=== PATIENT | female | born 1965 | race Caucasian/White ===

== ENCOUNTER 2018-06-16 21:18 | Emergency (ER) | payer BC, OTHER ==
[~2018-06-16] VITALS: Ht 172.7 cm; Wt 115.2 kg
[~2018-06-16 21:18] MED LIST: CLONIDINE HCL0.1 MG PO; LACTULOSE20 GM/30 M PO; LOSARTAN POTASS25 MG PO; SENNA LAX8.6 MG PO; SERTRALINE HCL50 MG PO; Z.0.ATENOLOL100 MG PO; Z.0.PRILOSEC20 MG; Z.1.LISINOPRIL-HCT1
[2018-06-16 22:28] LABS: BASOPHILS # (AUTO) 0.1 (0.0-0.1); BASOPHILS % 0.5 % (0.0-1.0); EOSINOPHILS # (AUTO) 0.3 (0.0-0.4); EOSINOPHILS % 2.5 % (0.0-6.0); HEMATOCRIT 37.2 % (34.2-44.1); HEMOGLOBIN 12.1 g/dL (12.0-16.0); LYMPHOCYTES # (AUTO) 1.9 (1.0-3.2); LYMPHOCYTES % 18.4 % (18.0-39.1); MEAN CORPUSCULAR HEMOGLOBIN 34.6 pg (28-32); MEAN CORPUSCULAR HGB CONC 32.5 g/dL (31-35); MEAN CORPUSCULAR VOLUME 106.3 fL (81-99); MONOCYTES # (AUTO) 0.5 (0.2-0.8); MONOCYTES % 4.5 % (4.4-11.3); NEUTROPHILS # (AUTO) 7.7 (2.1-6.9); NEUTROPHILS % 73.7 % (38.7-80.0); PLATELET COUNT 295 x10e3/uL (140-360); RED CELL DISTRIBUTION WIDTH 13.4 % (11.7-14.4)
[2018-06-16 22:43] LABS: ALANINE AMINOTRANSFERASE 8 IU/L (0-55); ALBUMIN 3.7 g/dL (3.5-5.0); ALBUMIN/GLOBULIN RATIO 0.9 (0.8-2.0); ALKALINE PHOSPHATASE 130 IU/L (40-150); AMYLASE 38 U/L (25-125); ANION GAP 14.9 mmol/L (8-16); BLOOD UREA NITROGEN 23 mg/dL (7-26); BUN/CREATININE RATIO 15 (6-25); CALCIUM 9.9 mg/dL (8.4-10.2); CARBON DIOXIDE 26 mmol/L (22-29); CHLORIDE 100 mmol/L (98-107); CREATINE KINASE 25 IU/L (29-168); CREATININE, SERUM 1.49 mg/dL (0.57-1.11); EST GLOMERULAR FILTRATION RATE 36 ML/MIN (60-); GLUCOSE 115 mg/dL (74-118); LIPASE 38 U/L (8-78); MAGNESIUM 2.4 MG/DL (1.3-2.1); POTASSIUM 4.9 mmol/L (3.5-5.1); SODIUM 136 mmol/L (136-145)
[2018-06-16 22:58] LABS: BILIRUBIN,URINE NEGATIVE (NEGATIVE); CLARITY,URINE CLEAR (CLEAR); COLOR,URINE YELLOW (YELLOW); KETONES,URINE NEGATIVE (NEGATIVE); LEUKOCYTE ESTERASE ,URINE NEGATIVE (NEGATIVE); NITRITE,URINE NEGATIVE (NEGATIVE); PROTEIN,URINE DIPSTICK NEGATIVE (NEGATIVE); URINE UROBILINOGEN 0.2 mg/dL (0.2 - 1)
--- NOTE | 2018-06-16 23:13 | Diagnostic Imaging Report ---
EXAM: CHEST SINGLE (PORTABLE), AP 1 view INDICATION: Shortness of breath, chest pain COMPARISON: None FINDINGS: LINES/TUBES: None LUNGS: No consolidations or edema. PLEURA: No effusions or pneumothorax. HEART AND MEDIASTINUM: Normal size and contour. BONES AND SOFT TISSUES: No acute findings. IMPRESSION: No acute thoracic abnormality. Signed by: Dr. Li Bridges M.D. on 06/16/2018 11:09 PM
[2018-06-16 23:19] LABS: BACTERIA,URINE RARE /HPF; EPITHELIAL CELLS,URINE FEW /LPF; RBC,URINE 0-5 /HPF (0-5); WBC,URINE (MAN) 0-5 /HPF (0-5)
[2018-06-17] MEDS ORDERED: IPRATROPIUM BROMIDE 0.02% 2.5 ML NEB NEB STA (00:20)
[2018-06-17] MEDS ORDERED: ALBUTEROL SULF 0.083% NEB SOLN 3 ML NEB NEB STA (00:20)
== END 2018-06-17 01:25 | disposition home or self-care (01) ==
LOC: ER 21:18
DX: R05 Cough (principal); J20.9 Acute bronchitis, unspecified; I10 Essential (primary) hypertension
CPT/HCPCS: 36415; 71045; 80053; 81001; 82150; 82550; 82553; 83605; 83690; 83735; 84484; 85025; 93005; 94640; 99284

== ENCOUNTER 2020-03-05 16:55 | Inpatient (IN) | payer SELFPAY ==
[~2020-03-05] VITALS: Ht 172.7 cm; Wt 115.2 kg
[2020-03-05] MEDS ORDERED: ASPIRIN 325 MG TAB PO ONE (17:00)
--- NOTE | 2020-03-05 17:04 | Emergency Department Note ---
History of Present Illnes History of Present Illness Chief Complaint: General Medicine Complaints History of Present Illness This is a 54 year old female with acute onset diplopia, slurring of speech and visual changes onset of 1649. Patient reports having vertigo like symptoms followed by partial visual loss. Patient had similiar symptoms which self resolved last week. . Historian: Patient, Family Member Arrival Mode: Car Onset (how long ago): minute(s) Radiation: Reports non-radiation Severity: severe Onset quality: sudden Timing of current episode: constant Progression: worsening Chronicity: new Context: Denies recent illness, Denies recent surgery, Denies recent immobilization, Denies recent travel, Denies trauma/injury, Denies new medications, Denies hx of DVT/PE, Denies non-compliance w/ medications, Denies other Relieving factors: none Exacerbating factors: none Associated symptoms: Reports weakness Treatments prior to arrival: none Past Medical/Family History Physician Review I have reviewed the patient's past medical and family history. Any updates have been documented here. Past Medical History Recent Fever: No Clinical Suspicion of Infectio: No New/Unexplained Change in Ment: Yes Past Medical History: Hypertension Other Medical History: HIGH CHOLESTEROL, SHINGLES, ANGINA, IBS Other Surgery: ENDOMETRIAL ABLATION, FIBROID TUMORS Social History Smoking Cessation: Never Smoker Alcohol Use: None Any Illegal Drug Use: No Other Last Tetanus: 2009 Review of Systems Review of Systems Constitutional: Reports no symptoms EENTM: Reports no symptoms Cardiovascular: Reports no symptoms Respiratory: Reports no symptoms Gastrointestinal: Reports no symptoms Genitourinary: Reports no symptoms Musculoskeletal: Reports no symptoms Integumentary: Reports no symptoms Neurological: Reports weakness, Reports other (vertigo, slurring of speech, visual changes (diplopia and partial visual loss)) Psychological: Reports no symptoms Endocrine: Reports no symptoms Hematological/Lymphatic: Reports no symptoms Physical Exam Related Data Allergies: Coded Allergies: No Known Allergies (Unverified , 11/18/15) Triage Vital Signs Vital Signs Date Time Temp Pulse Resp B/P (MAP) Pulse Ox O2 Delivery O2 Flow Rate FiO2 03/05/20 17:02 98.4 77 14 139/76 100 Room Air Vital signs reviewed: Yes Physical Exam CONSTITUTIONAL Constitutional: Present obese HENT HENT: Present normocephalic, Present atraumatic, Present oropharynx clear/moist, Present nose normal HENT L/R: Present left ext ear normal, Present right ext ear normal EYES Eyes: Reports PERRL, Reports conjunctivae normal NECK Neck: Present ROM normal PULMONARY Pulmonary: Present effort normal, Present breath sounds normal CARDIOVASCULAR Cardiovascular: Present regular rhythm, Present heart sounds normal, Present capillary refill normal, Present normal rate GASTROINTESTINAL Abdominal: Present soft, Present nontender, Present bowel sounds normal GENITOURINARY Genitourinary: Present exam deferred SKIN Skin: Present warm, Present dry MUSCULOSKELETAL Musculoskeletal: Present ROM normal NEUROLOGICAL Neurological: Present alert, Present oriented x 3, Present weakness, Present other PSYCHOLOGICAL Psychological: Present mood/affect normal, Present judgement normal Results Laboratory Lab results reviewed: Yes Laboratory comments Laboratory Tests Test 03/05/20 19:13 03/05/20 17:15 White Blood Count 7.17 x10e3/uL (4.8-10.8) Red Blood Count 3.68 x10e6/uL (3.6-5.1) Hemoglobin 11.6 g/dL (12.0-16.0) Hematocrit 37.0 % (34.2-44.1) Mean Corpuscular Volume 100.5 fL (81-99) Mean Corpuscular Hemoglobin 31.5 pg (28-32) Mean Corpuscular Hemoglobin Concent 31.4 g/dL (31-35) Red Cell Distribution Width 13.0 % (11.7-14.4) Platelet Count 278 x10e3/uL (140-360) Neutrophils (%) (Auto) 63.9 % (38.7-80.0) Lymphocytes (%) (Auto) 25.7 % (18.0-39.1) Monocytes (%) (Auto) 7.3 % (4.4-11.3) Eosinophils (%) (Auto) 2.6 % (0.0-6.0) Basophils (%) (Auto) 0.4 % (0.0-1.0) Neutrophils # (Auto) 4.6 (2.1-6.9) Lymphocytes # (Auto) 1.8 (1.0-3.2) Monocytes # (Auto) 0.5 (0.2-0.8) Eosinophils # (Auto) 0.2 (0.0-0.4) Basophils # (Auto) 0.0 (0.0-0.1) Absolute Immature Granulocyte (auto 0.01 x10e3/uL (0-0.1) Prothrombin Time 12.3 seconds (11.9-14.5) Prothromb Time International Ratio 0.87 Activated Partial Thromboplast Time 28.9 seconds (23.8-35.5) Sodium Level 138 mmol/L (136-145) Potassium Level 4.6 mmol/L (3.5-5.1) Chloride Level 104 mmol/L (98-107) Carbon Dioxide Level 24 mmol/L (22-29) Anion Gap 14.6 mmol/L (8-16) Blood Urea Nitrogen 19 mg/dL (7-26) Creatinine 1.29 mg/dL (0.57-1.11) Estimat Glomerular Filtration Rate 43 ML/MIN (60-) BUN/Creatinine Ratio 15 (6-25) Glucose Level 101 mg/dL (74-118) Calcium Level 9.3 mg/dL (8.4-10.2) Total Bilirubin 0.2 mg/dL (0.2-1.2) Aspartate Amino Transf (AST/SGOT) 16 IU/L (5-34) Alanine Aminotransferase (ALT/SGPT) 15 IU/L (0-55) Alkaline Phosphatase 167 IU/L (40-150) Creatine Kinase 27 IU/L (29-168) Creatine Kinase MB 0.80 ng/mL (0-5.0) Troponin I < 0.001 ng/mL (0-0.300) Total Protein 7.4 g/dL (6.5-8.1) Albumin 3.6 g/dL (3.5-5.0) Globulin 3.8 g/dL (2.3-3.5) Albumin/Globulin Ratio 0.9 (0.8-2.0) Imaging Imaging results reviewed: Yes Impressions [place] [address] Patient Name: DENNIS ONEAL MR #: [id number] : 1965 Age/Sex: 54/F Req #: [id number] Adm Physician: JOHN CHADWICK MD Ordered by: AMNA CHADWICK DO Report #: [id number] Location: [facility] Room/Bed: [place] [address] Procedure: [id number] DX/CHEST SINGLE (PORTABLE) Exam Date: 03/05/20 Exam Time: 1720 REPORT STATUS: Signed EXAMINATION: CHEST SINGLE (PORTABLE) COMPARISON: Chest x-ray 06/16/2018 INDICATION: ^weakness ^[id number] ^1720 DISCUSSION: Frontal view of the chest obtained at 1727 hours. HEART AND MEDIASTINUM: Stable mild cardiomegaly LINES: None. LUNGS/PLEURA: The lungs are well inflated and clear. No pneumonia or pulmonary edema. No pleural effusion or pneumothorax. BONES AND SOFT TISSUES: No focal osseous lesion. The soft tissues are normal. IMPRESSION: Stable mild cardiomegaly. No acute cardiopulmonary process. Signed by: Dr. Romeo Freeman MD on 03/05/2020 6:03 PM Dictated By: ROMEO FREEMAN MD 02 Transcribed By: COLTON on 03/05/201802 COPY TO: AMNA CHADWICK DO~ [place] [address] Patient Name: DENNIS ONEAL MR #: [id number] : 1965 Age/Sex: 54/F Req #: [id number] [facility] Physician: JOHN CHADWICK MD Ordered by: AMNA CHADWICK DO Report #: [id number] Location: [facility] Room/Bed: [place] [address] Procedure: [id number] CT/CTA NECK Exam Date: 03/05/20 Exam Time: 1725 REPORT STATUS: Signed CTA NECK, CTA BRAIN HISTORY: Dizziness, loss of vision COMPARISON: None. TECHNIQUE: CTA of the head and neck was performed with intravenous iodine based contrast. Coronal, sagittal, and oblique maximum intensity projection reformations were created. One or more of the following dose reduction techniques were used: Automated exposure control, adjustment of the mA and/or kV according to patient size, and/or utilization of iterative reconstruction technique. DISCUSSION: If present, any cervical carotid stenosis will be measured as a percentage relative to the mentasta artery distal to the stenosis (NASCET). CERVICAL CTA: There is mild calcified plaque in the aortic arch and proximal great vessels. Right Carotid: Mild right carotid bulb calcified plaque does not cause significant stenosis. The right common carotid artery has a retropharyngeal course. Left Carotid: Mild left carotid bulb calcified plaque does not cause significant stenosis. The left common carotid artery has a retropharyngeal course. Right vertebral artery: Patent, no abnormalities. Left vertebral artery: Patent, no abnormalities. INTRACRANIAL CTA: Carotid arteries: Minimal right carotid siphon calcified plaque does not cause significant stenosis. The intracranial internal carotid arteries are otherwise patent and without abnormality. No abnormalities in the A1 or M1 segments. Vertebrobasilar Circulation: Right vertebral artery: Severe stenosis of the right vertebral artery V1 segment, starting at the origin, becomes near complete occlusion in the proximal V2 segment. There is minimal reconstitution of the distal V2 segment with patent, but diminutive V3 segment. Left vertebral artery: Patent, no abnormalities. Basilar artery: Patent, no abnormalities. Posterior cerebral arteries: Patent, no abnormalities. Normal Variants: ACom: Not clearly visualized. PComs: Patent on the right. Not visualized on the left. Vertebral arteries: Left dominant. The major dural venous sinuses are grossly patent. Additional findings: The palatine tonsils are mildly prominent, left slightly greater than right. Possible small partially imaged calcified granuloma in the right upper lobe. Partially imaged enlarged pulmonary artery is compatible with pulmonary hypertension. There are prominent degenerative changes throughout the spine. IMPRESSION: 1. Age indeterminate severe stenosis of the right vertebral artery V1 segment with near complete occlusion at the proximal V2 segment. This could be due to dissection. There is minimal filling of the distal V2 segment with reconstitution at the V3 segment. 2. Mild bilateral carotid bulb and right carotid siphon calcified plaque without significant stenosis. 3. No other cervical or intracranial CTA abnormalities. 4. Enlarged pulmonary artery suggests pulmonary hypertension. Signed by: Dr. Balwinder Wheeler M.D. on 03/05/2020 6:09 PM Dictated By: BALWINDER WHEELER MD 08 Transcribed By: COLTON on 03/05/201808 COPY TO: CHADWICKAMNA ~ Critical Care Time Total Critical Care Time (min): 31 Critcal care necessary due to: DRY CH[employer] PULLER failure or compromise Critcal care time spent by me: develop tx plan w patient/surrogate, discussion w consultants, discussion w primary provider, examination of patient, obtaining hx from patient/surrogate, order/perform tx or interventions, order/review laboratory studies, order/review radiographic studies, re-evaluation of patient condition Clinical Decision Tools NIH Stroke Scale NIH Stroke Score: NIH Stroke Score Response (Comments) Value Level of Consciousness Alert, Keenly Responsive 0 Level of Consciousness Questions Answers Both Correctly 0 Level of Consciousness Commands Performs Both Tasks 0 Lateral Gaze Paresis Normal 0 Visual Field Loss Partial Henianopia 1 Facial Palsy Normal Symmetrical Move 0 Motor Left Arm Drift, Does Not Hit Bed 1 Motor Right Arm No Drift, Arm Stays 45/90 0 Motor Left Leg No Drift, Arm Stays 45/90 0 Motor Right Leg No Drift, Arm Stays 45/90 0 Limb Ataxia Absent 0 Sensory Loss Normal 0 Language Aphasia No Aphasia, Normal 0 Dysarthria Mild/Mod Slurs Words 1 Extinction and Inattention No Abnormality 0 Total 3 Assessment & Plan Medical Decision Making JOMAR Rowan presents to the ED for acute onset of dizziness, concerning for CVA of t he posterior circulation. Onset at 1650, CTA of brain and neck ordered. case d/w neurology. Symptoms resolved at 1735. TPA deferred secondary to resolving neuro symptoms. Plan to admit for further neurologic evaluation Reassessment Reassessment time: 17:12 Reassessment case d/w Neurology, Dr Morris, who agreed to see patient as a [facility] consultant and recommend tPA if CT brain was negative. Patient reassessed s/p CTS, marked improved neurological exam. Slurring of speech resolved. Dizziness resolved. NIH zero Assessment & Plan Final Impression: (1) TIA involving vertebral artery (2) Renal insufficiency Depart Disposition: ADMITTED Home Meds Reported Medications Lactulose (LACTULOSE) 20 Gm/30 Ml Solution, 30 ML PO Q8H PRN for CONSTIPATION, EACH 01/10/18 Sennosides (SENNA LAX) 8.6 Mg Tablet, 1 MG PO BID 01/10/18 Sertraline Hcl (SERTRALINE HCL) 50 Mg Tablet, 50 MG PO DAILY, #30 TAB 10/27/14 Losartan Potassium (LOSARTAN POTASSIUM) 25 Mg Tablet, 25 MG PO DAILY 10/27/14 Clonidine Hcl (CLONIDINE HCL) 0.1 Mg Tablet, 1 TAB PO HS, #60 TAB 10/27/14 Atenolol (Atenolol) 100 Mg Tablet, 100 MG PO BID, #1 01/02/12 Omeprazole (Prilosec) 20 Mg Capsule., DAILY, #1 05/11/11 AMNA CHADWICK DO Mar 05, 2020 17:04
[2020-03-05 17:31] LABS: BASOPHILS % 0.4 % (0.0-1.0); EOSINOPHILS # (AUTO) 0.2 (0.0-0.4); EOSINOPHILS % 2.6 % (0.0-6.0); HEMOGLOBIN 11.6 g/dL (12.0-16.0); LYMPHOCYTES # (AUTO) 1.8 (1.0-3.2); LYMPHOCYTES % 25.7 % (18.0-39.1); MEAN CORPUSCULAR HEMOGLOBIN 31.5 pg (28-32); MEAN CORPUSCULAR HGB CONC 31.4 g/dL (31-35); MEAN CORPUSCULAR VOLUME 100.5 fL (81-99); MONOCYTES # (AUTO) 0.5 (0.2-0.8); MONOCYTES % 7.3 % (4.4-11.3); NEUTROPHILS # (AUTO) 4.6 (2.1-6.9); NEUTROPHILS % 63.9 % (38.7-80.0); PLATELET COUNT 278 x10e3/uL (140-360); RED BLOOD COUNT 3.68 x10e6/uL (3.6-5.1)
[2020-03-05] MEDS ORDERED: ASPIRIN 81 MG CHEW TAB PO ONE (17:45)
[2020-03-05] MEDS ORDERED: ONDANSETRON HCL INJ 2MG/ML 2ML 2 MG/ML VIAL IV PRN (17:45)
[2020-03-05] MEDS ORDERED: SODIUM CHLORIDE FLUSH 10 ML SYR INJ PRN (17:45)
[2020-03-05] MEDS ORDERED: MORPHINE SULFATE 2 MG/ML SYR 1ML IV PRN (17:45)
[2020-03-05] MEDS ORDERED: SODIUM CHLORIDE 0.9% 1000ML 1,000 ML IV SCH (17:45)
--- OUTSIDE RECORDS SUMMARY | 2020-03-05 17:46 | XMS REPORT | Continuity of Care Document ---
Author Author [facility] t Organization [facility] Address [address] [place] [address] Phone Unavailable Care Team Providers Care Information Technology Analyst Name Role Phone BERNARDA GARCIA PCP Adonay LUNA Attphys Unavailable Payers Payer Name Policy Type Policy Number Effective Date Expiration Date Maria Fernanda Mckeon o [id number] 2011 00:00:00 [facility] Problems Condition Name Condition Details Condition Category Status Onset Date Resolution Date Last Treatment Date Treating Clinician Comments Source Cholelithiasis with cholecystitis Cholecystitis with cholelithia sis Problem Active 2014-10-28 00:00:00 [facility] Allergies, Adverse Reactions, Alerts Allergy Name Allergy Type Status Severity Reaction(s) Onset Date Inacti ve Date Treating Clinician Comments Source No Known Allergies DA Active U 2017-07-15 00:00:00 [facility] Medications Ordered Medication Name Filled Medication Name Start Date Stop Da te Current Medication? Ordering Clinician Indication Dosage Frequency Signature (SIG) Comments Components Source Atenolol 100 Mg Tablet Atenolol 100 Mg Tablet Yes 100 Twice A Day [facility] Clonidine Hcl 0.1 Mg Tablet Clonidine Hcl 0.1 Mg Tablet Yes 1 Bedtime [facility] Lactulose 20 Gm/30 Ml Solution Lactulose 20 Gm/30 Ml Solution Yes 30 Every 8 Hours as needed for Constipation [facility] Losartan Potassium 25 Mg Tablet Losartan Potassium 25 Mg Tablet Yes 25 Daily [facility] Omeprazole (Prilosec) 20 Mg Capsule. Omeprazole (Prilosec) 20 Mg Capsule. Yes Daily [facility] Sennosides (Senna Lax) 8.6 Mg Tablet Sennosides (Senna Lax) 8.6 Mg Tablet Yes 1 Twice A Day [facility] Sertraline Hcl 50 Mg Tablet Sertraline Hcl 50 Mg Tablet Yes 50 Daily [facility] Lisinopril/Hydrochlorothiazide (Lisinopril-Hctz 20-12. 5 Mg Tab) 1 Each Tablet, Lisinopril/Hydrochlorothiazide (Lisinopril-Hctz 20-12.5 Mg Tab) 1 Each Tablet, 2014-10-27 00:00:00 No Daily [facility] Procedures This patient has no known procedures. Encounters Start Date/Time End Date/Time [facility]counter Type [facility] En[facility] ID Source 2018-06-16 21:18:00 2018-06-16 21:18:00 Registered Emergency Room 1 PATTI LUNA [facility] [id number] [facility] Results Test Description Test Time Test Comments Results Result Comments Source Urine WBC 2018-06-16 23:19:00 Test Item Urine WBC (test code = 5821-4) 0-5 0-5 [facility] [id number] 23:19:00* Test Item Value Reference Range Interpretation Comments Urine RBC (test code = 81759-6) 0-5 0-5 [facility] Zdhaybnk5182-85-83 23:19:00* Test Item Value Reference Range Interpretation Comments Urine Bacteria (test code = 70024-6) RARE NONE [facility] Center[facility] Epithelial [id number] 23:19:00 * Test Item Value Reference Range Interpretation Comments Urine Epithelial Cells (test code = 58057-1) FEW NONE [facility] Vwcsu8303-92-37 23:14:00* Test Item Value Reference Range Interpretation Comments Sodium Level (test code = 2951-2) 136 136-145 [facility] CenterPotassium Wqohg5065-53-24 23:14:00* Test Item Value Reference Range Interpretation Comments Potassium Level (test code = 2823-3) 4.9 3.5-5.1 [facility] CenterChloride Akuzl5024-98-28 23:14:00* Test Item Value Reference Range Interpretation Comments Chloride Level (test code = 2075-0) 100 98-107 [facility] CenterCarbon Dioxide Lbred8155-53-30 23:14:00* Test Item Value Reference Range Interpretation Comments Carbon Dioxide Level (test code = 2028-9) 26 22-29 [facility] CenterAnion Ety5582-94-53 23:14:00* Test Item Value Reference Range Interpretation Comments Anion Gap (test code = 77980-7) 14.9 8-16 [facility] CenterBlood Urea Claenyhu4279-13-73 23:14:00* Test Item Value Reference Range Interpretation Comments Blood Urea Nitrogen (test code = 3094-0) 23 7-26 [facility] CenterCreatinine2018-12-01 23:14:00* Test Item Value Reference Range Interpretation Comments Creatinine (test code = 2160-0) 1.49 0.57-1.11 H [facility] CenterBUN/Creatinine Gsotj7212-74-48 23:14:00* Test Item Value Reference Range Interpretation Comments BUN/Creatinine Ratio (test code = 3097-3) 15 6-25 [facility] CenterEstimat Glomerular Filtration Rate 2018-06-16 23:14:00* Test Item Value Reference Range Interpretation Comments Estimat Glomerular Filtration Rate (test code = 464940603) 36 >60 L Ranges were taken from the National Kidney Disease Education Program and the [facility] Kid[facility] Foundation literature.Reference ranges:60 or greater: Dkshbl47-13 ( for 3 consecutive months): Chronic kidney disease 15 or less: Kidney failureCedar Park Regional Medical CenterGlucose Ozsek3441-09-76 23:14:00* Test Item Value Reference Range Interpretation Comments Glucose Level (test code = VQK8624) 115 74-118 [facility] CenterCalcium Uxdwc2954-93-49 23:14:00* Test Item Value Reference Range Interpretation Comments Calcium Level (test code = 85148-6) 9.9 8.4-10.2 [facility] CenterLactic Acid Csomn6602-03-80 23:14:00* Test Item Value Reference Range Interpretation Comments Lactic Acid Level (test code = Lactic Acid Level) 7.7 4.5- 19.8 [facility] CenterMagnesium Koovp9981-27-20 23:14:00* Test Item Value Reference Range Interpretation Comments Magnesium Level (test code = 26272-2) 2.4 1.3-2.1 H [facility] CenterT[facility] Cxmpgrdhd8017-54-06 23:14:00* Test Item Value Reference Range Interpretation Comments Total Bilirubin (test code = 1975-2) 0.2 0.2-1.2 [facility] CenterAspartate Amino Transf (AST/SGOT) 2018-06-16 23:14:00* Test Item Value Reference Range Interpretation Comments Aspartate Amino Transf (AST/SGOT) (test code = Aspartate Amino Transf (AST/SGOT)) 12 5-34 [facility] CenterAlanine Aminotransferase (ALT/SGPT) 2018-06-16 23:14:00* Test Item Value Reference Range Interpretation Comments Alanine Aminotransferase (ALT/SGPT) (test code = 1742-6) 8 0-55 [facility] Sjvmcjh7357-90-35 23:14:00* Test Item Value Reference Range Interpretation Comments Total Protein (test code = 2885-2) 7.7 6.5-8.1 [facility] CenterAlbumin2018-12-01 23:14:00* Test Item Value Reference Range Interpretation Comments Albumin (test code = 1751-7) 3.7 3.5-5.0 [facility] CenterGlobulin2018-12-01 23:14:00* Test Item Value Reference Range Interpretation Comments Globulin (test code = 80322-9) 4.0 2.3-3.5 H [facility] CenterAlbumin/Globulin Mtoxa0216-83-41 23:14:00 * Test Item Value Reference Range Interpretation Comments Albumin/Globulin Ratio (test code = 1759-0) 0.9 0.8-2.0 [facility] CenterAlkaline Dudamjlsovz0472-17-02 23:14:00* Test Item Value Reference Range Interpretation Comments Alkaline Phosphatase (test code = 6768-6) 130 40-150 [facility] CenterCreatine Veckcm1846-54-26 23:14:00* Test Item Value Reference Range Interpretation Comments Creatine Kinase (test code = 2157-6) 25 29-168 L [facility] CenterCreatine Kinase OY8013-21-05 23:14:00* Test Item Value Reference Range Interpretation Comments Creatine Kinase MB (test code = 13199-8) 0.50 0-5.0 [facility] CenterTroponin [id number] 23:14:00* Test Item Value Reference Range Interpretation Comments Troponin I (test code = CHW2019) < 0.001 0-0.300 [facility] CenterAmylase Ghfre1620-23-66 23:14:00* Test Item Value Reference Range Interpretation Comments Amylase Level (test code = 1798-8) 38 25-125 [facility] CenterLipase2018-12-01 23:14:00* Test Item Value Reference Range Interpretation Comments Lipase (test code = 3040-3) 38 8-78 [facility] CenterWhite Blood Gbtnf3330-00-26 23:12:00* Test Item Value Reference Range Interpretation Comments White Blood Count (test code = 6690-2) 10.45 4.8-10.8 [facility] CenterRed Blood Dgrrx4783-85-37 23:12:00* Test Item Value Reference Range Interpretation Comments Red Blood Count (test code = 789-8) 3.50 3.6-5.1 L [facility] CenterHemoglobin2018-12-01 23:12:00* Test Item Value Reference Range Interpretation Comments Hemoglobin (test code = 20067-1) 12.1 12.0-16.0 [facility] CenterHematocrit2018-12-01 23:12:00* Test Item Value Reference Range Interpretation Comments Hematocrit (test code = 4544-3) 37.2 34.2-44.1 [facility] CenterMean Corpuscular Fdhkxi2906-06-75 23:12:00* Test Item Value Reference Range Interpretation Comments Mean Corpuscular Volume (test code = 787-2) 106.3 81-99 H [facility] CenterMean Corpuscular Octmbrulxm3468-32-58 23:12:00* Test Item Value Reference Range Interpretation Comments Mean Corpuscular Hemoglobin (test code = 785-6) 34.6 28-32 H [facility] CenterMean Corpuscular Hemoglobin Concent 2018-06-16 23:12:00* Test Item Value Reference Range Interpretation Comments Mean Corpuscular Hemoglobin Concent (test code = 786-4) 32.5 31-35 [facility] CenterRed Cell Distribution Dnhkf9488-16-98 23:12:00* Test Item Value Reference Range Interpretation Comments Red Cell Distribution Width (test code = 20921-2) 13.4 11.7 -14.4 [facility] CenterPlatelet Rsnuf8929-71-63 23:12:00* Test Item Value Reference Range Interpretation Comments Platelet Count (test code = 777-3) 295 140-360 [facility] CenterNeutrophils (%) (Auto)2018-06-16 23:12:00 * Test Item Value Reference Range Interpretation Comments Neutrophils (%) (Auto) (test code = 10218-9) 73.7 38.7-80.0 [facility] CenterLymphocytes (%) (Auto)2018-06-16 23:12:00 * Test Item Value Reference Range Interpretation Comments Lymphocytes (%) (Auto) (test code = 736-9) 18.4 18.0-39.1 [facility] CenterMonocytes (%) (Auto)2018-06-16 23:12:00* Test Item Value Reference Range Interpretation Comments Monocytes (%) (Auto) (test code = 5905-5) 4.5 4.4-11.3 [facility] CenterEosinophils (%) (Auto)2018-06-16 23:12:00 * Test Item Value Reference Range Interpretation Comments Eosinophils (%) (Auto) (test code = 713-8) 2.5 0.0-6.0 [facility] CenterBasophils (%) (Auto)2018-06-16 23:12:00* Test Item Value Reference Range Interpretation Comments Basophils (%) (Auto) (test code = 706-2) 0.5 0.0-1.0 [facility] CenterIM GRANULOCYTES %2018-06-16 23:12:00* Test Item Value Reference Range Interpretation Comments IM GRANULOCYTES % (test code = IM GRANULOCYTES %) 0.4 0.0- 1.0 [facility] CenterNeutrophils # (Auto)2018-06-16 23:12:00* Test Item Value Reference Range Interpretation Comments Neutrophils # (Auto) (test code = 751-8) 7.7 2.1-6.9 H [facility] CenterLymphocytes # (Auto)2018-06-16 23:12:00* Test Item Value Reference Range Interpretation Comments Lymphocytes # (Auto) (test code = 14153-7) 1.9 1.0-3.2 [facility] CenterMonocytes # (Auto)2018-06-16 23:12:00* Test Item Value Reference Range Interpretation Comments Monocytes # (Auto) (test code = 742-7) 0.5 0.2-0.8 [facility] CenterEosinophils # (Auto)2018-06-16 23:12:00* Test Item Value Reference Range Interpretation Comments Eosinophils # (Auto) (test code = 711-2) 0.3 0.0-0.4 [facility] CenterBasophils # (Auto)2018-06-16 23:12:00* Test Item Value Reference Range Interpretation Comments Basophils # (Auto) (test code = 704-7) 0.1 0.0-0.1 [facility] CenterAbsolute Immature Granulocyte (auto 2018-06-16 23:12:00* Test Item Value Reference Range Interpretation Comments Absolute Immature Granulocyte (auto (delio t code = Absolute Immature Granulocyte (auto) 0.04 0-0.1 [facility] CenterCHEST SINGLE (PORTABLE)2018-06-16 23:09:00 [facility] [address] [address] Patient Name: DENNIS ONEAL MR #: [id number] : 1965 Age/Sex: 53/F Req #: [id number] Adm Physician: Ordered by: PATTI LUNA MD Report #: [id number] Location: ER Room/Bed: Procedure: [id number] DX/[facility] ST SINGLE (PORTABLE) Exam Date: 06/16/18 Exam Time: 2239 REPORT STATUS: Signed EXAM: CHEST SINGLE (PORTABLE), AP 1 view INDICATION: Shortness of breath, chest pain COMPARISON: None FINDINGS: LINES/TUBES: None LUNGS: No consolida tions or edema. PLEURA: No effusions or pneumothorax. HEART AND MEDIA STINUM: Normal size and contour. BONES AND SOFT TISSUES: No acute findings. IMPRESSION: No acute thoracic abnormality. Signed by: Dr. Nikole Bridges M.D. on 06/16/2018 11:09 PM Dictated By: NIKOLE BRIDGES MD 08 Transcribed By: Misha VALENTINE on 06/16/182308 COPY TO: PATTI LUNA MD Urine Color 2018-06-16 22:58:00* Test Item Value Reference Range Interpretation Comments Urine Color (test code = 5778-6) YELLOW YELLOW [facility] CenterUrine Xzrwoqg1233-57-58 22:58:00* Test Item Value Reference Range Interpretation Comments Urine Clarity (test code = 29198-4) CLEAR CLEAR [facility] CenterUrine Specific Kmvcriq7055-67-43 22:58:00 * Test Item Value Reference Range Interpretation Comments Urine Specific [place] (test code = 5811-5) 1.010 1.010-1.02 5 [facility] CenterUrine [id number] 22:58:00* Test Item Value Reference Range Interpretation Comments Urine pH (test code = 24706-4) 7 5-7 [facility] Leukocyte Eahdsgtc9114-19-72 22:58:00* Test Item Value Reference Range Interpretation Comments Urine Leukocyte Esterase (test code = 5799-2) NEGATIVE NEGATIVE [facility] Ukudggy1935-11-21 22:58:00* Test Item Value Reference Range Interpretation Comments Urine Nitrite (test code = 88841-4) NEGATIVE NEGATIVE [facility] Ddpkkjs6510-27-11 22:58:00* Test Item Value Reference Range Interpretation Comments Urine Protein (test code = 5804-0) NEGATIVE NEGATIVE [facility] Glucose (UA)2018-06-16 22:58:00* Test Item Value Reference Range Interpretation Comments Urine Glucose (UA) (test code = 2349-9) NEGATIVE NEGATIVE [facility] Xraccoj0625-85-76 22:58:00* Test Item Value Reference Range Interpretation Comments Urine Ketones (test code = 82205-3) NEGATIVE NEGATIVE [facility] Rqeuzqspnxmw9031-57-63 22:58:00* Test Item Value Reference Range Interpretation Comments Urine Urobilinogen (test code = 38449-1) 0.2 0.2-1 [facility] Bmrzrcvjv7310-71-64 22:58:00* Test Item Value Reference Range Interpretation Comments Urine Bilirubin (test code = 1978-6) NEGATIVE NEGATIVE [facility] Pqaii9572-97-41 22:58:00* Test Item Value Reference Range Interpretation Comments Urine Blood (test code = 62842-0) NEGATIVE NEGATIVE [facility]
[2020-03-05 17:47] LABS: ALANINE AMINOTRANSFERASE 15 IU/L (0-55); ALBUMIN 3.6 g/dL (3.5-5.0); ALBUMIN/GLOBULIN RATIO 0.9 (0.8-2.0); ALKALINE PHOSPHATASE 167 IU/L (40-150); ANION GAP 14.6 mmol/L (8-16); BLOOD UREA NITROGEN 19 mg/dL (7-26); BUN/CREATININE RATIO 15 (6-25); CALCIUM 9.3 mg/dL (8.4-10.2); CARBON DIOXIDE 24 mmol/L (22-29); CHLORIDE 104 mmol/L (98-107); CREATINE KINASE 27 IU/L (29-168); CREATININE, SERUM 1.29 mg/dL (0.57-1.11); EST GLOMERULAR FILTRATION RATE 43 ML/MIN (60-); GLUCOSE 101 mg/dL (74-118); POTASSIUM 4.6 mmol/L (3.5-5.1); SODIUM 138 mmol/L (136-145)
[2020-03-05] MEDS ORDERED: MORPHINE SULFATE INJ 4 MG/ML INJ 1ML IV PRN (18:00)
--- OUTSIDE RECORDS SUMMARY | 2020-03-05 18:00 | XMS REPORT | Continuity of Care Document ---
Author Author [facility] t Organization [facility] Address [address] [place] [address] Phone Unavailable Care Team Providers Care Sales Representative [employer] Name Role Phone BERNARDA GARCIA PCP Adonay LUNA Attphys Unavailable Payers Payer Name Policy Type Policy Number Effective Date Expiration Date Maria Fernanda Mckeon o [id number] 2011 00:00:00 [facility] Problems Condition Name Condition Details Condition Category Status Onset Date Resolution Date Last Treatment Date Treating Clinician Comments Source Cholelithiasis with cholecystitis Cholecystitis with cholelithia sis Problem Active 2014-10-28 00:00:00 [facility] Allergies, Adverse Reactions, Alerts Allergy Name Allergy Type Status Severity Reaction(s) Onset Date Inacti ve Date Treating Clinician Comments Source No Known Allergies DA Active U 2017-07-15 00:00:00 [facility] Medications Ordered Medication Name Filled Medication Name Start Date Stop Da te Current Medication? Ordering Clinician Indication Dosage Frequency Signature (SIG) Comments Components Source Atenolol 100 Mg Tablet Atenolol 100 Mg Tablet Yes 100 Twice A Day [facility] Clonidine Hcl 0.1 Mg Tablet Clonidine Hcl 0.1 Mg Tablet Yes 1 Bedtime [facility] Lactulose 20 Gm/30 Ml Solution Lactulose 20 Gm/30 Ml Solution Yes 30 Every 8 Hours as needed for Constipation [facility] Losartan Potassium 25 Mg Tablet Losartan Potassium 25 Mg Tablet Yes 25 Daily [facility] Omeprazole (Prilosec) 20 Mg Capsule. Omeprazole (Prilosec) 20 Mg Capsule. Yes Daily [facility] Sennosides (Senna Lax) 8.6 Mg Tablet Sennosides (Senna Lax) 8.6 Mg Tablet Yes 1 Twice A Day [facility] Sertraline Hcl 50 Mg Tablet Sertraline Hcl 50 Mg Tablet Yes 50 Daily [facility] Lisinopril/Hydrochlorothiazide (Lisinopril-Hctz 20-12. 5 Mg Tab) 1 Each Tablet, Lisinopril/Hydrochlorothiazide (Lisinopril-Hctz 20-12.5 Mg Tab) 1 Each Tablet, 2014-10-27 00:00:00 No Daily [facility] Procedures This patient has no known procedures. Encounters Start Date/Time End Date/Time [facility] Type [facility] ID Source 2018-06-16 21:18:00 2018-06-16 21:18:00 Registered Emergency Room 1 PATTI LUNA [facility] [id number] [facility] Results Test Description Test Time Test Comments Results Result Comments Source Urine WBC 2018-06-16 23:19:00 Test Item Urine WBC (test code = 5821-4) 0-5 0-5 [facility] [id number] 23:19:00* Test Item Value Reference Range Interpretation Comments Urine RBC (test code = 34478-6) 0-5 0-5 [facility] [id number] 23:19:00* Test Item Value Reference Range Interpretation Comments Urine Bacteria (test code = 53317-7) RARE NONE [facility] Epithelial [id number] 23:19:00 * Test Item Value Reference Range Interpretation Comments Urine Epithelial Cells (test code = 47571-0) FEW NONE [facility] [id number] 23:14:00* Test Item Value Reference Range Interpretation Comments Sodium Level (test code = 2951-2) 136 136-145 [facility] [id number] 23:14:00* Test Item Value Reference Range Interpretation Comments Potassium Level (test code = 2823-3) 4.9 3.5-5.1 [facility] [id number] 23:14:00* Test Item Value Reference Range Interpretation Comments Chloride Level (test code = 2075-0) 100 98-107 [facility]Car[facility] Dioxide [id number] 23:14:00* Test Item Value Reference Range Interpretation Comments Carbon Dioxide Level (test code = 2028-9) 26 22-29 [facility]Anion [id number] 23:14:00* Test Item Value Reference Range Interpretation Comments Anion Gap (test code = 44242-5) 14.9 8-16 [facility]Blood Urea [id number] 23:14:00* Test Item Value Reference Range Interpretation Comments Blood Urea Nitrogen (test code = 3094-0) 23 7-26 [facility]Creatinine2018-12-01 23:14:00* Test Item Value Reference Range Interpretation Comments Creatinine (test code = 2160-0) 1.49 0.57-1.11 H [facility] HospitalBUN/Creatinine Dsgvi0289-94-02 23:14:00* Test Item Value Reference Range Interpretation Comments BUN/Creatinine Ratio (test code = 3097-3) 15 6-25 [facility]Estimat Glomerular Filtration Rate 2018-06-16 23:14:00* Test Item Value Reference Range Interpretation Comments Estimat Glomerular Filtration Rate (test code = 074284965) 36 >60 L Ranges were taken from the National Kidney Disease Education Program and the [facility] literature.Reference ranges:60 or greater: Qlfesi40-57 ( for 3 consecutive months): Chronic kidney disease 15 or less: Kidney failureTyler County HospitalGlucose Sprrh8332-31-73 23:14:00* Test Item Value Reference Range Interpretation Comments Glucose Level (test code = UII7170) 115 74-118 [facility] HospitalCalcium [id number] 23:14:00* Test Item Value Reference Range Interpretation Comments Calcium Level (test code = 51899-2) 9.9 8.4-10.2 [facility] HospitalLactic Acid [id number] 23:14:00* Test Item Value Reference Range Interpretation Comments Lactic Acid Level (test code = Lactic Acid Level) 7.7 4.5- 19.8 [facility]Magnesium Hucyi7844-90-96 23:14:00* Test Item Value Reference Range Interpretation Comments Magnesium Level (test code = 44028-9) 2.4 1.3-2.1 H [facility] Jakqidnro7459-93-24 23:14:00* Test Item Value Reference Range Interpretation Comments Total Bilirubin (test code = 1975-2) 0.2 0.2-1.2 [facility] HospitalAspartate Amino Transf (AST/SGOT) 2018-06-16 23:14:00* Test Item Value Reference Range Interpretation Comments Aspartate Amino Transf (AST/SGOT) (test code = Aspartate Amino Transf (AST/SGOT)) 12 5-34 [facility] HospitalAlanine Aminotransferase (ALT/SGPT) 2018-06-16 23:14:00* Test Item Value Reference Range Interpretation Comments Alanine Aminotransferase (ALT/SGPT) (test code = 1742-6) 8 0-55 [facility] Yxfcjqt3302-95-30 23:14:00* Test Item Value Reference Range Interpretation Comments Total Protein (test code = 2885-2) 7.7 6.5-8.1 [facility] HospitalAlbumin2018-12-01 23:14:00* Test Item Value Reference Range Interpretation Comments Albumin (test code = 1751-7) 3.7 3.5-5.0 [facility]Globulin2018-12-01 23:14:00* Test Item Value Reference Range Interpretation Comments Globulin (test code = 75629-5) 4.0 2.3-3.5 H [facility] HospitalAlbumin/Globulin Wzcey1980-72-06 23:14:00 * Test Item Value Reference Range Interpretation Comments Albumin/Globulin Ratio (test code = 1759-0) 0.9 0.8-2.0 [facility] HospitalAlkaline Ghimxoxtcbd1796-21-13 23:14:00* Test Item Value Reference Range Interpretation Comments Alkaline Phosphatase (test code = 6768-6) 130 40-150 [facility] HospitalCreatine Ilebjm9216-76-81 23:14:00* Test Item Value Reference Range Interpretation Comments Creatine Kinase (test code = 2157-6) 25 29-168 L [facility] HospitalCreatine Kinase [id number] 23:14:00* Test Item Value Reference Range Interpretation Comments Creatine Kinase MB (test code = 88998-7) 0.50 0-5.0 [facility] HospitalTroponin [id number] 23:14:00* Test Item Value Reference Range Interpretation Comments Troponin I (test code = QPS8820) < 0.001 0-0.300 [facility] HospitalAmylase Zceko8274-99-40 23:14:00* Test Item Value Reference Range Interpretation Comments Amylase Level (test code = 1798-8) 38 25-125 [facility] HospitalLipase2018-12-01 23:14:00* Test Item Value Reference Range Interpretation Comments Lipase (test code = 3040-3) 38 8-78 [facility] HospitalWhite Blood [id number] 23:12:00* Test Item Value Reference Range Interpretation Comments White Blood Count (test code = 6690-2) 10.45 4.8-10.8 [facility] HospitalRed Blood Lgyoz9500-72-30 23:12:00* Test Item Value Reference Range Interpretation Comments Red Blood Count (test code = 789-8) 3.50 3.6-5.1 L [facility] HospitalHemoglobin2018-12-01 23:12:00* Test Item Value Reference Range Interpretation Comments Hemoglobin (test code = 68294-7) 12.1 12.0-16.0 [facility] HospitalHematocrit2018-12-01 23:12:00* Test Item Value Reference Range Interpretation Comments Hematocrit (test code = 4544-3) 37.2 34.2-44.1 [facility] HospitalMean Corpuscular Epnriu7269-17-75 23:12:00* Test Item Value Reference Range Interpretation Comments Mean Corpuscular Volume (test code = 787-2) 106.3 81-99 H [facility] HospitalMean Corpuscular Jtkntgsptn8917-31-91 23:12:00* Test Item Value Reference Range Interpretation Comments Mean Corpuscular Hemoglobin (test code = 785-6) 34.6 28-32 H [facility] HospitalMean Corpuscular Hemoglobin Concent 2018-06-16 23:12:00* Test Item Value Reference Range Interpretation Comments Mean Corpuscular Hemoglobin Concent (test code = 786-4) 32.5 31-35 [facility] HospitalRed Cell Distribution Iisar7737-74-64 23:12:00* Test Item Value Reference Range Interpretation Comments Red Cell Distribution Width (test code = 73762-4) 13.4 11.7 -14.4 [facility] HospitalPlatelet Bfaxs8334-52-99 23:12:00* Test Item Value Reference Range Interpretation Comments Platelet Count (test code = 777-3) 295 140-360 [facility] HospitalNeutrophils (%) (Auto)2018-06-16 23:12:00 * Test Item Value Reference Range Interpretation Comments Neutrophils (%) (Auto) (test code = 62671-7) 73.7 38.7-80.0 [facility] HospitalLymphocytes (%) (Auto)2018-06-16 23:12:00 * Test Item Value Reference Range Interpretation Comments Lymphocytes (%) (Auto) (test code = 736-9) 18.4 18.0-39.1 [facility] HospitalMonocytes (%) (Auto)2018-06-16 23:12:00* Test Item Value Reference Range Interpretation Comments Monocytes (%) (Auto) (test code = 5905-5) 4.5 4.4-11.3 [facility] HospitalEosinophils (%) (Auto)2018-06-16 23:12:00 * Test Item Value Reference Range Interpretation Comments Eosinophils (%) (Auto) (test code = 713-8) 2.5 0.0-6.0 [facility]Basophils (%) (Auto)2018-06-16 23:12:00* Test Item Value Reference Range Interpretation Comments Basophils (%) (Auto) (test code = 706-2) 0.5 0.0-1.0 [facility] HospitalIM GRANULOCYTES %2018-06-16 23:12:00* Test Item Value Reference Range Interpretation Comments IM GRANULOCYTES % (test code = IM GRANULOCYTES %) 0.4 0.0- 1.0 [facility] HospitalNeutrophils # (Auto)2018-06-16 23:12:00* Test Item Value Reference Range Interpretation Comments Neutrophils # (Auto) (test code = 751-8) 7.7 2.1-6.9 H [facility] HospitalLymphocytes # (Auto)2018-06-16 23:12:00* Test Item Value Reference Range Interpretation Comments Lymphocytes # (Auto) (test code = 92999-3) 1.9 1.0-3.2 [facility]Monocytes # (Auto)2018-06-16 23:12:00* Test Item Value Reference Range Interpretation Comments Monocytes # (Auto) (test code = 742-7) 0.5 0.2-0.8 [facility]Eosinophils # (Auto)2018-06-16 23:12:00* Test Item Value Reference Range Interpretation Comments Eosinophils # (Auto) (test code = 711-2) 0.3 0.0-0.4 [facility]Basophils # (Auto)2018-06-16 23:12:00* Test Item Value Reference Range Interpretation Comments Basophils # (Auto) (test code = 704-7) 0.1 0.0-0.1 [facility] HospitalAbsolute Immature Granulocyte (auto 2018-06-16 23:12:00* Test Item Value Reference Range Interpretation Comments Absolute Immature Granulocyte (auto (delio t code = Absolute Immature Granulocyte (auto) 0.04 0-0.1 [facility] HospitalCHEST SINGLE (PORTABLE)2018-06-16 23:09:00 [facility] [address] [address] Patient Name: DENNIS ONEAL MR #: [id number] : 1965 Age/Sex: 53/F Req #: [id number] Adm Physician: Ordered by: PATTI LUNA MD Report #: [id number] Location: ER Room/Bed: Procedure: 1401-0460 DX/[facility] ST SINGLE (PORTABLE) Exam Date: 06/16/18 Exam [...] Color (test code = 5778-6) YELLOW YELLOW [facility] HospitalUrine [id number] 22:58:00* Test Item Value Reference Range Interpretation Comments Urine Clarity (test code = 84472-4) CLEAR CLEAR [facility] HospitalUrine Specific Owtqeis9883-84-60 22:58:00 * Test Item Value Reference Range Interpretation Comments Urine Specific [place] (test code = 5811-5) 1.010 1.010-1.02 5 [facility] HospitalUrine [id number] 22:58:00* Test Item Value Reference Range Interpretation Comments Urine pH (test code = 73617-4) 7 5-7 [facility] Leukocyte Nmjhxlxi2315-04-16 22:58:00* Test Item Value Reference Range Interpretation Comments Urine Leukocyte Esterase (test code = 5799-2) NEGATIVE NEGATIVE [facility] Eypnfbr0360-38-85 22:58:00* Test Item Value Reference Range Interpretation Comments Urine Nitrite (test code = 53342-4) NEGATIVE NEGATIVE [facility] Ygewdbs0570-86-07 22:58:00* Test Item Value Reference Range Interpretation Comments Urine Protein (test code = 5804-0) NEGATIVE NEGATIVE [facility] Glucose (UA)2018-06-16 22:58:00* Test Item Value Reference Range Interpretation Comments Urine Glucose (UA) (test code = 2349-9) NEGATIVE NEGATIVE [facility] Cuhyxdu4627-83-31 22:58:00* Test Item Value Reference Range Interpretation Comments Urine Ketones (test code = 04698-4) NEGATIVE NEGATIVE [facility] Bjjmtclulefk5830-52-78 22:58:00* Test Item Value Reference Range Interpretation Comments Urine Urobilinogen (test code = 02968-0) 0.2 0.2-1 [facility] Qbynoansi4280-55-29 22:58:00* Test Item Value Reference Range Interpretation Comments Urine Bilirubin (test code = 1978-6) NEGATIVE NEGATIVE [facility] Hlmpj2648-29-58 22:58:00* Test Item Value Reference Range Interpretation Comments Urine Blood (test code = 57444-2) NEGATIVE NEGATIVE [facility]
[2020-03-05 18:02] LABS: PARTIAL THROMBOPLASTIN TIME 28.9 seconds (23.8-35.5)
--- NOTE | 2020-03-05 18:07 | Diagnostic Imaging Report ---
EXAMINATION: CHEST SINGLE (PORTABLE) COMPARISON: Chest x-ray 06/16/2018 INDICATION: ^weakness ^[id number] ^1720 DISCUSSION: Frontal view of the chest obtained at 1727 hours. HEART AND MEDIASTINUM: Stable mild cardiomegaly LINES: None. LUNGS/PLEURA: The lungs are well inflated and clear. No pneumonia or pulmonary edema. No pleural effusion or pneumothorax. BONES AND SOFT TISSUES: No focal osseous lesion. The soft tissues are normal. IMPRESSION: Stable mild cardiomegaly. No acute cardiopulmonary process. Signed by: Dr. Peterson Freeman MD on 03/05/2020 6:03 PM
[2020-03-05] MEDS ORDERED: SODIUM CHLORIDE 0.9% 100 ML ONE (18:08)
[2020-03-05] MEDS ORDERED: IOPAMIDOL 370 MG/ML 200 ML INFUS..BTL INJ ONE (18:08)
--- NOTE | 2020-03-05 18:13 | Diagnostic Imaging Report ---
CTA NECK, CTA BRAIN HISTORY: Dizziness, loss of vision COMPARISON: None. TECHNIQUE: CTA of the head and neck was performed with intravenous iodine based contrast. Coronal, sagittal, and oblique maximum intensity projection reformations were created. One or more of the following dose reduction techniques were used: Automated exposure control, adjustment of the mA and/or kV according to patient size, and/or utilization of iterative reconstruction technique. DISCUSSION: If present, any cervical carotid stenosis will be measured as a percentage relative to the [place] artery distal to the stenosis (NASCET). CERVICAL CTA: There is mild calcified plaque in the aortic arch and proximal great vessels. Right Carotid: Mild right carotid bulb calcified plaque does not cause significant stenosis. The right common carotid artery has a retropharyngeal course. Left Carotid: Mild left carotid bulb calcified plaque does not cause significant stenosis. The left common carotid artery has a retropharyngeal course. Right vertebral artery: Patent, no abnormalities. Left vertebral artery: Patent, no abnormalities. INTRACRANIAL CTA: Carotid arteries: Minimal right carotid siphon calcified plaque does not cause significant stenosis. The intracranial internal carotid arteries are otherwise patent and without abnormality. No abnormalities in the A1 or M1 segments. Vertebrobasilar Circulation: Right vertebral artery: Severe stenosis of the right vertebral artery V1 segment, starting at the origin, becomes near complete occlusion in the proximal V2 segment. There is minimal reconstitution of the distal V2 segment with patent, but diminutive V3 segment. Left vertebral artery: Patent, no abnormalities. Basilar artery: Patent, no abnormalities. Posterior cerebral arteries: Patent, no abnormalities. Normal Variants: ACom: Not clearly visualized. PComs: Patent on the right. Not visualized on the left. Vertebral arteries: Left dominant. The major dural venous sinuses are grossly patent. Additional findings: The palatine tonsils are mildly prominent, left slightly greater than right. Possible small partially imaged calcified granuloma in the right upper lobe. Partially imaged enlarged pulmonary artery is compatible with pulmonary hypertension. There are prominent degenerative changes throughout the spine. IMPRESSION: 1. Age indeterminate severe stenosis of the right vertebral artery V1 segment with near complete occlusion at the proximal V2 segment. This could be due to dissection. There is minimal filling of the distal V2 segment with reconstitution at the V3 segment. 2. Mild bilateral carotid bulb and right carotid siphon calcified plaque without significant stenosis. 3. No other cervical or intracranial CTA abnormalities. 4. Enlarged pulmonary artery suggests pulmonary hypertension. Signed by: Dr. Balwinder Wheeler M.D. on 03/05/2020 6:09 PM
[2020-03-05 18:37] LABS: INR 0.87; PROTHROMBIN TIME 12.3 seconds (11.9-14.5)
[2020-03-05] MEDS ORDERED: LACTULOSE SYRUP 20 GM/30 ML UDC PO PRN (23:30)
[2020-03-06] VITALS (9 sets, daily range): BP systolic 102–132; BP diastolic 46–80
[2020-03-06] MEDS ORDERED: BENADRYL25 M1 PO (02:40)
[2020-03-06] MEDS ORDERED: MOBIC15 MG PO (02:40)
[2020-03-06 03:44] LABS: CREATINE KINASE 26 IU/L (29-168)
[2020-03-06 06:52] LABS: BASOPHILS % 0.4 % (0.0-1.0); EOSINOPHILS # (AUTO) 0.2 (0.0-0.4); EOSINOPHILS % 3.3 % (0.0-6.0); HEMATOCRIT 35.7 % (34.2-44.1); HEMOGLOBIN 11.1 g/dL (12.0-16.0); LYMPHOCYTES # (AUTO) 2.1 (1.0-3.2); LYMPHOCYTES % 30.1 % (18.0-39.1); MEAN CORPUSCULAR HEMOGLOBIN 31.6 pg (28-32); MEAN CORPUSCULAR HGB CONC 31.1 g/dL (31-35); MEAN CORPUSCULAR VOLUME 101.7 fL (81-99); MONOCYTES # (AUTO) 0.5 (0.2-0.8); MONOCYTES % 7.3 % (4.4-11.3); NEUTROPHILS % 58.6 % (38.7-80.0); PLATELET COUNT 247 x10e3/uL (140-360); RED BLOOD COUNT 3.51 x10e6/uL (3.6-5.1)
--- NOTE | 2020-03-06 07:00 | NUR ---
BEDSIDE SHIFT REPORT RECEIVED FROM THE INHALATION THERAPY TEACHER RN. EDUCATED PT ABOUT FALL PRECAUTIONS. PT VERBALIZED UNDERSTANDING. CALL LIGHT WITH IN EASY REACH. BED IS LOW AND LOCKED. SIDE RAILS X2. BED ALARM IS ON. ALL SAFETY MEASURES IN PLACE. PT DENIES NEEDS AT THIS TIME.
[2020-03-06 07:18] LABS: ALBUMIN 3.4 g/dL (3.5-5.0); ANION GAP 14.5 mmol/L (8-16); CALCIUM 9.3 mg/dL (8.4-10.2); CREATININE, SERUM 1.22 mg/dL (0.57-1.11); POTASSIUM 4.5 mmol/L (3.5-5.1)
--- NOTE | 2020-03-06 07:30 | NUR ---
PAGED DR. VERNON REGARDING NEW CONSULT.
--- NOTE | 2020-03-06 08:12 | NUR ---
PAGED MRI REGARDING STAT MRI ORDER
--- NOTE | 2020-03-06 08:40 | NUR ---
PT OFF UNIT FOR MRI IN SAFE CONDITION.
--- NOTE | 2020-03-06 08:55 | NUR ---
PT BACK TO THE UNIT. PT IS CLAUSTROPHOBIC AND REFUSED MRI PER MRI RN.
--- NOTE | 2020-03-06 08:55 | NUR ---
STAT CAROTID DOPPLER AND ECHO ORDER INFORMED JOB SITE SUPERVISOR
[2020-03-06] MEDS: OMEPRAZOLE 20 MG CAP PO SCH (09:15)
[2020-03-06] MEDS: LOSARTAN POTASSIUM 25 MG TAB PO SCH (09:15)
[2020-03-06] MEDS: SENNOSIDES 8.6 MG TAB PO SCH ×2 (09:15→16:22)
[2020-03-06] MEDS: SERTRALINE HCL 50 MG TAB PO SCH (09:16)
[2020-03-06] MEDS: ATENOLOL 100 MG TAB PO SCH ×2 (09:16→16:23)
[2020-03-06 11:33] LABS: CREATINE KINASE MB 0.7 ng/mL (0-5.0)
--- NOTE | 2020-03-06 12:18 | NUR ---
PAGED MRI REGARDING PT MRI ORDER.
[2020-03-06] MEDS ORDERED: DIAZEPAM 5 MG TAB PO ONE (12:45)
--- NOTE | 2020-03-06 14:37 | NUR ---
PT OFF UNIT FOR MRI IN SAFE CONDITION.
--- NOTE | 2020-03-06 14:40 | NUR ---
ECHO COMPLETED. PERICARDIAL EFFUSION 1.1 CM PER GYM SUPERVISOR. PAGED DR. CHADWICK AND REPORTED THE SAME. NO NEW ORDERS RECEIVED.
--- NOTE | 2020-03-06 15:00 | NUR ---
PT BACK TO THE UNIT. PT IS EXTREMELY CLAUSTROPHOBIC AND REFUSED MRI PER MRI RN. PT DENIES NEEDS AT THIS TIME.
--- NOTE | 2020-03-06 15:50 | NUR ---
DR. VERNON AT BEDSIDE. PT REFUSED MRI REPORTED TO
[2020-03-06] MEDS ORDERED: ASPIRIN 81 MG CHEW TAB PO SCH (16:30)
--- NOTE | 2020-03-06 19:00 | NUR ---
BEDSIDE SHIFT REPORT GIVEN TO THE ENROLLMENT SERVICES VICE PRESIDENT RN. PT DENIED FURTHER NEEDS.
--- NOTE | 2020-03-06 20:00 | History and Physical ---
PRIMARY CARE PHYSICIAN: Dr. Jordy Dudley. CHIEF COMPLAINT: Possible TIA with speech problem and recognition problem along with possible left-sided facial droop. HISTORY OF PRESENT ILLNESS: This is a 54 years old female with acute onset of diplopia, slurred speech and visual changes that lasted approximately 1 minute and it subsequently went away. The patient was taken to the emergency room for evaluation. On the emergency room evaluation, the patient had a neck CTA and head CTA as well. It was age indeterminate severe stenosis of the right vertebral artery V1 segment with near complete occlusion at the proximal V2 segment. This could be due to dissection. There is a minimal filling of the distal V2 segment with the reconstitution at the V3 segment as well. The patient had mild bilateral carotid bulb and right carotid siphon calcified plaque without significant stenosis. The patient's MRI of the brain is still pending at this time. The patient's lab work otherwise unremarkable. Serology: COVID-19 PCR is still pending. The patient is comfortable at this time. She is asymptomatic. She is back to baseline. The carotid Doppler that was done showed no significant stenosis of the internal carotid. The patient is otherwise stable at this time. EKG is unremarkable. PAST MEDICAL HISTORY: Dyslipidemia, shingle, IBS, hypertension. PAST SURGICAL HISTORY: Endometrial ablation, fibroid tumor. SOCIAL HISTORY: The patient was a drinker but quit many years. She never smoked. ALLERGIES: NO KNOWN ALLERGIES. CURRENT MEDICATIONS: The patient is on: 1. Atenolol. 2. Clonidine. 3. Lactulose. 4. Losartan. 5. Meloxicam. 6. Omeprazole. 7. Senna-S. 8. Zoloft. PHYSICAL EXAMINATION: VITAL SIGNS: Temperature is 98, blood pressure 110/59, pulse rate 81, and respirations 18. GENERAL: The patient is in no acute distress. She is awake. HEENT: Normocephalic and atraumatic. Sclerae anicteric. NECK: Supple grossly. PULMONARY: Clear. CARDIOVASCULAR: Regular rate and rhythm. ABDOMEN: Soft and unremarkable, obese. EXTREMITIES: No cyanosis or edema. NEUROLOGIC: No focal deficit. LABORATORY DATA: Otherwise unremarkable. Sodium is 139, potassium 4.5, chloride 105, bicarb 24, BUN 18, creatinine 1.3, glucose 107. WBC 6.8, hemoglobin 11.1, hematocrit 35.7, and platelets is 247. INR 0.87. IMPRESSION: 1. Possible transient ischemic attack. 2. Right vertebral artery stenosis. 3. Multiple chronic baseline problems. PLAN: Continue with home medication. Consultation with neurologist, Dr. Werner Morris. MRI of the brain pending. Carotid Doppler echocardiogram will be reviewed as well. Carotid Doppler was otherwise unremarkable. . MD SARA Larose/LAISHA /[id number]
[2020-03-06] MEDS ORDERED: ATORVASTATIN 40 MG TAB PO SCH (21:00)
--- NOTE | 2020-03-06 23:45 | Consultation ---
DATE OF CONSULTATION: Neurology Consultation REASON FOR CONSULTATION: Seeing patient for what was initially discussed or considered a TIA, but which appears to be more likely to be positional or peripheral vertigo. HISTORY OF PRESENT ILLNESS: Ms. Burris is a 54-year-old female, who has history of having recurrent episodes of dizziness and visual changes, that occurred multiple times in the past, but have been occurring now for about 3 days and was lasting about a minute, resolving spontaneously. At this time, she is asymptomatic. Vascular imaging shows severe stenosis of V1 and V2, carotid artery opacification, and suggestion of pulmonary hypertension. CT scan of the head is reassuring. No evidence of stroke on the brain CT. REVIEW OF SYSTEMS: blurry vision. Denies headaches. Denies nausea or vomiting. . Denies shortness of breath or chest pain. Denies lower extremity paresthesias or edema. No incontinence. PHYSICAL EXAMINATION: VITAL SIGNS: Stable. Heart rate is 68 and regular, temperature 97.6, and blood pressure 110/59. HEENT: Extraocular muscles intact. Face symmetric. Tongue is midline. Speech is mildly dysarthric, but it seems to be a dental issue. No nuchal rigidity. CARDIOVASCULAR: Regular rate and rhythm. ABDOMEN: Soft. She is morbidly obese. Breath sounds are distant. NEURO: No ataxia on exam. No sensory ataxia or drift noted on upper extremities. Bilateral extremities at least 4/5 reflexes diminished, but present in all four extremities as sensory modalities. ASSESSMENT AND PLAN: The patient with significant intracranial stenosis. Recommending initially a lipid panel, high-dose statins, aspirin, and Plavix as preventative therapy. She cannot tolerate MRI, ultimately to force the issue of getting an MRI done. I do think she should see an outpatient Interventional Neurovascular specialist. When she discharges from here echocardiogram and telemetry was recommended, and then angiography as an outpatient will also be helpful in the patient. She has not yet failed maximum medical therapy, so we do one initiate at least maximum medical therapy with an aspirin, statins, and Plavix before we move onto intracranial intervention procedure. FELICIA VERNON MD RR/MODL /[id number]
[2020-03-07] VITALS: BP 144/75
[2020-03-07 04:00] VITALS: BP 132/85
[2020-03-07 06:50] LABS: CHOL/HDL RATIO 8.4 (3.0-3.6)
[2020-03-07 08:25] VITALS: BP 111/58
[2020-03-07 08:30] VITALS: BP 111/58
[2020-03-07 08:36] VITALS: BP 117/78
[2020-03-07] MEDS: SENNOSIDES 8.6 MG TAB PO SCH (08:48)
[2020-03-07] MEDS: ATENOLOL 100 MG TAB PO SCH (08:48)
[2020-03-07] MEDS: SERTRALINE HCL 50 MG TAB PO SCH (08:48)
[2020-03-07] MEDS: OMEPRAZOLE 20 MG CAP PO SCH (08:48)
[2020-03-07] MEDS: LOSARTAN POTASSIUM 25 MG TAB PO SCH (08:48)
[2020-03-07] MEDS ORDERED: ASPIRIN 81 MG CHEW TAB PO SCH ×2 (09:00)
[2020-03-07] MEDS ORDERED: CLOPIDOGREL BISULFATE 75 MG TAB PO SCH (09:00)
--- NOTE | 2020-03-07 10:24 | NUR ---
stroke workup patient with intermittetn vertigo 98.2 72 111/58 HEENT: Extraocular muscles intact. Face symmetric. Tongue is midline. Speech is mildly dysarthric, but it seems to be a dental issue. No nuchal rigidity. CARDIOVASCULAR: Regular rate and rhythm. ABDOMEN: Soft. She is morbidly obese. Breath sounds are distant. NEURO: No ataxia on exam. No sensory ataxia or drift noted on upper extremities. Bilateral extremities at least 4/5 reflexes diminished, but present in all four extremities as sensory modalities. ASSESSMENT AND PLAN: high grade vascular stenosis intracrnial vasculopthy asa and plavix + statin is max medical therapy, anticoagulation. The patient with significant intracranial stenosis. max medical therapy w antiplatelet is superior to anticoagulation or stenting however out pt follow up w/ vascular neuro specialist is warranted
--- NOTE | 2020-03-07 11:05 | NUR ---
dt guaman to see pt, pt dc
[2020-03-07 12:00] VITALS: BP 109/71
--- NOTE | 2020-03-07 12:02 | Discharge Summary ---
PRIMARY CARE PHYSICIAN: Dr. Jordy Dudley. NURSING RESIDENT: Werner Morris MD. FINAL DIAGNOSES: 1. Intracranial vertebral stenosis of D1 and D2 segment. 2. Dyslipidemia. 3. Baseline hypertension. 4. Baseline morbid obesity. 5. Transient ischemic attack symptoms. SUMMARY: The patient is a 54-year-old female with left-sided TIA symptoms, completely resolved. She did have some facial droop, some brief vision problems, but that resolved within a minute. The patient had this episode previously. Currently, the patient was not on aspirin and Plavix prior to her admission. The patient had a CTA of the neck and the head that was done. Consultation with Dr. Werner Morris is done. He recommended for the patient to see an outpatient interventional neurovascular specialist at a later date. In the meantime, he has also recommended the patient to take aspirin and Plavix since the patient was not on it prior. The recommendation is for the patient to initiate at least maximum medical therapy with aspirin, statin, and Plavix before moving into the intracranial intervention procedures. I discussed with the patient at length today and she has absolutely agreed. She want to follow up with her family physician and then also with Dr. Morris for referral as an outpatient if needed. The patient will be continued to be monitored by Dr. Morris or her family physician. I recommended the patient to be compliant and follow up on a closely basis. She has also noted that she needs to lose weight and also watching her diet along with a low-fat diet as well. The patient is otherwise stable. The echocardiogram show mild cardial effusion. There is no tamponade. Carotid Doppler, no carotid stenosis. The patient is otherwise stable. She is doing well. Total cholesterol was 268. LDL is 186, HDL 32, triglycerides 250. The patient will go home to resume her home medication. She will take Ecotrin 81 mg daily, Plavix 75 mg daily, and Lipitor 20 mg at bedtime. She will need to follow up with her family physician for a liver enzyme check after taking the Lipitor. She will need refill from her primary care physician. The patient is otherwise stable. Discussed with the patient at length and I gave the patient information. The patient must follow up for the intracranial vertebral stenosis on the right as discussed with the patient at length today. The patient will be discharged home today with the above medication. MD SARA Larose/LAISHA /[id number]
[2020-03-07] MEDS ORDERED: ECOTRIN81 MG PO (12:24)
[2020-03-07] MEDS ORDERED: PLAVIX75 MG PO (12:24)
[2020-03-07] MEDS ORDERED: LIPITOR20 MG PO (12:25)
== END 2020-03-07 14:07 | disposition home or self-care (01) | DRG 68 ==
LOC: ER 17:43 → ERHOLD 17:58 → MED/SURG3 23:59
PROVIDERS: ADMIT Internal Medicine; ATTEND Internal Medicine
DX: I65.01 Occlusion and stenosis of right vertebral artery (principal); I65.23 Occlusion and stenosis of bilateral carotid arteries; E78.5 Hyperlipidemia, unspecified; K58.9 Irritable bowel syndrome, unspecified; I10 Essential (primary) hypertension; E66.9 Obesity, unspecified; Z68.38 Body mass index [BMI] 38.0-38.9, adult; H81.10 Benign paroxysmal vertigo, unspecified ear; Z11.59 Encounter for screening for other viral diseases
CPT/HCPCS: 36415; 70496; 70498; 71045; 80053; 80061; 82465; 82550; 82553; 83090; 84484; 85025; 85597; 85598; 85610; 85613; 85730; 85732; 86021; 86039; 86146; 86147; 86148; 86235; 86849; 93005; 93306; 93880; 99284; J7030; J7050; Q9967; U0002

== ENCOUNTER 2022-03-27 01:47 | Observation (INO) | payer OTHER, SELFPAY ==
[~2022-03-27] VITALS: Ht 167.6 cm; Wt 158.8 kg
[2022-03-27] VITALS (7 sets, daily range): BP systolic 125–140; BP diastolic 54–91
[~2022-03-27 01:47] MED LIST changes: +BENADRYL25 M1 PO; +ECOTRIN81 MG PO; +LIPITOR20 MG PO; +MOBIC15 MG PO; +PLAVIX75 MG PO
[2022-03-27 04:02] LABS: BASOPHILS # (AUTO) 0.1 (0.0-0.1); BASOPHILS % 0.6 % (0.0-1.0); EOSINOPHILS # (AUTO) 0.3 (0.0-0.4); HEMATOCRIT 41.1 % (34.2-44.1); HEMOGLOBIN 12.8 g/dL (12.0-16.0); LYMPHOCYTES # (AUTO) 1.7 (1.0-3.2); LYMPHOCYTES % 18.6 % (18.0-39.1); MEAN CORPUSCULAR HEMOGLOBIN 30.9 pg (28-32); MEAN CORPUSCULAR HGB CONC 31.1 g/dL (31-35); MEAN CORPUSCULAR VOLUME 99.3 fL (81-99); MONOCYTES # (AUTO) 0.6 (0.2-0.8); MONOCYTES % 6.4 % (4.4-11.3); NEUTROPHILS # (AUTO) 6.5 (2.1-6.9); NEUTROPHILS % 71.3 % (38.7-80.0); PLATELET COUNT 278 x10e3/uL (140-360); RED BLOOD COUNT 4.14 x10e6/uL (3.6-5.1); RED CELL DISTRIBUTION WIDTH 12.8 % (11.7-14.4)
[2022-03-27 04:30] LABS: ALBUMIN 3.8 g/dL (3.5-5.0); ALBUMIN/GLOBULIN RATIO 0.9 (0.8-2.0); ANION GAP 19.4 mmol/L (8-16); CALCIUM 9.2 mg/dL (8.4-10.2); CREATININE, SERUM 1.3 mg/dL (0.57-1.11); POTASSIUM 5.4 mmol/L (3.5-5.1)
[2022-03-27] MEDS ORDERED: SODIUM CHLORIDE 0.9% 1000ML 1,000 ML IV SCH (04:45)
[2022-03-27] MEDS ORDERED: ASPIRIN 81 MG CHEW TAB PO ONE (04:45)
[2022-03-27] MEDS ORDERED: SOD POLYSTYRENE SULFONATE SUSP 15 GM/60 ML BTL PO ONE (04:45)
[2022-03-27] MEDS ORDERED: CALCIUM GLUC 1 G/50 ML NACL 50 ML IV ONE (05:00)
[2022-03-27 07:32] LABS: COLOR,URINE YELLOW (YELLOW)
[2022-03-27 07:33] LABS: CLARITY,URINE CLEAR (CLEAR); KETONES,URINE NEGATIVE (NEGATIVE); LEUKOCYTE ESTERASE ,URINE SMALL (NEGATIVE); NITRITE,URINE NEGATIVE (NEGATIVE); PROTEIN,URINE DIPSTICK NEGATIVE (NEGATIVE); URINE UROBILINOGEN 0.2 mg/dL (0.2 - 1)
[2022-03-27 07:34] LABS: BACTERIA,URINE MODERATE /HPF; EPITHELIAL CELLS,URINE MODERATE /LPF; RBC,URINE 0-5 /HPF (0-5)
[2022-03-27] MEDS ORDERED: CYCLOBENZAPRINE10 MG PO (10:20)
[2022-03-27] MEDS ORDERED: CELEBREX200 MG PO (10:27)
[2022-03-27 10:56] LABS: CREATINE KINASE 26 IU/L (29-168)
[2022-03-27] MEDS: SODIUM CHLORIDE 0.9% 1000ML 1,000 ML IV SCH ×2 (12:32→21:11)
[2022-03-27] MEDS ORDERED: CELECOXIB 200 MG CAP PO SCH (17:00)
[2022-03-27] MEDS: ATENOLOL 100 MG TAB PO SCH (17:23)
[2022-03-27] MEDS: CYCLOBENZAPRINE HCL 10 MG TAB PO PRN ×2 (17:23→21:29)
[2022-03-27 17:49] LABS: CREATINE KINASE 30 IU/L (29-168)
[2022-03-27] MEDS ORDERED: CLONIDINE HCL 0.1 MG TAB PO SCH (21:00)
[2022-03-27] MEDS: ATORVASTATIN 20 MG TAB PO SCH (21:12)
[2022-03-28] VITALS (8 sets, daily range): BP systolic 113–141; BP diastolic 58–79
[2022-03-28 00:33] LABS: CREATINE KINASE 31 IU/L (29-168)
[2022-03-28] MEDS ORDERED: ACETAMINOPHEN 325 MG TAB PO PRN (02:00)
[2022-03-28 05:52] LABS: BASOPHILS % 0.6 % (0.0-1.0); EOSINOPHILS # (AUTO) 0.2 (0.0-0.4); EOSINOPHILS % 2.8 % (0.0-6.0); HEMATOCRIT 37.1 % (34.2-44.1); HEMOGLOBIN 11.8 g/dL (12.0-16.0); LYMPHOCYTES # (AUTO) 1.4 (1.0-3.2); LYMPHOCYTES % 20.6 % (18.0-39.1); MEAN CORPUSCULAR HEMOGLOBIN 30.7 pg (28-32); MEAN CORPUSCULAR HGB CONC 31.8 g/dL (31-35); MEAN CORPUSCULAR VOLUME 96.6 fL (81-99); MONOCYTES # (AUTO) 0.4 (0.2-0.8); MONOCYTES % 6.5 % (4.4-11.3); NEUTROPHILS # (AUTO) 4.7 (2.1-6.9); NEUTROPHILS % 69.2 % (38.7-80.0); PLATELET COUNT 205 x10e3/uL (140-360); RED BLOOD COUNT 3.84 x10e6/uL (3.6-5.1); RED CELL DISTRIBUTION WIDTH 12.7 % (11.7-14.4)
[2022-03-28 06:13] LABS: CREATININE, SERUM 1.08 mg/dL (0.57-1.11)
[2022-03-28 06:27] LABS: MAGNESIUM 1.9 MG/DL (1.3-2.1); PHOSPHORUS 3.8 MG/DL (2.3-4.7)
[2022-03-28] MEDS: OMEPRAZOLE 20 MG CAP PO SCH (09:29)
[2022-03-28] MEDS: CLOPIDOGREL BISULFATE 75 MG TAB PO SCH (09:29)
[2022-03-28] MEDS: ASPIRIN 81 MG ENTERIC COATED PO SCH (09:29)
[2022-03-28] MEDS: ATENOLOL 100 MG TAB PO SCH ×2 (09:30→16:59)
[2022-03-28] MEDS: SERTRALINE HCL 50 MG TAB PO SCH (09:30)
[2022-03-28] MEDS: SODIUM CHLORIDE 0.9% 1000ML 1,000 ML IV SCH (09:30)
[2022-03-28] MEDS: ATORVASTATIN 20 MG TAB PO SCH (20:57)
[2022-03-29] VITALS: BP 131/65
[2022-03-29 06:07] VITALS: BP 140/72
[2022-03-29 08:34] VITALS: BP 131/68
[2022-03-29 08:41] VITALS: BP 131/68
[2022-03-29] MEDS: OMEPRAZOLE 20 MG CAP PO SCH (09:07)
[2022-03-29] MEDS: ASPIRIN 81 MG ENTERIC COATED PO SCH (09:08)
[2022-03-29] MEDS: ATENOLOL 100 MG TAB PO SCH (09:08)
[2022-03-29] MEDS: SERTRALINE HCL 50 MG TAB PO SCH (09:09)
[2022-03-29] MEDS: CLOPIDOGREL BISULFATE 75 MG TAB PO SCH (09:09)
[2022-03-29] MEDS: CYCLOBENZAPRINE HCL 10 MG TAB PO PRN (09:13)
== END 2022-03-29 11:12 | disposition home or self-care (01) ==
LOC: ER 01:55 → ERHOLD 04:42 → MED/SURG3 07:40
PROVIDERS: ADMIT Internal Medicine; ATTEND Internal Medicine
DX: R55 Syncope and collapse (principal); E87.5 Hyperkalemia; E66.01 Morbid (severe) obesity due to excess calories; Z68.43 Body mass index [BMI] 50.0-59.9, adult; F41.9 Anxiety disorder, unspecified; E78.5 Hyperlipidemia, unspecified; Z86.73 Personal history of transient ischemic attack (TIA), and cerebral infarction without residual deficits; K58.9 Irritable bowel syndrome, unspecified; M19.90 Unspecified osteoarthritis, unspecified site; I12.9 Hypertensive chronic kidney disease with stage 1 through stage 4 chronic kidney disease, or unspecified chronic kidney disease; N18.30 Chronic kidney disease, stage 3 unspecified; Z20.822 Contact with and (suspected) exposure to COVID-19; E11.9 Type 2 diabetes mellitus without complications
CPT/HCPCS: 36415; 70450; 71045; 80048; 80053; 80061; 81001; 82550 ×2; 82553 ×2; 83735; 83880; 84100; 84484 ×2; 85025 ×2; 93005; 93306; 93880; 94799 ×2; 99283; G0378 ×3; J7030; U0002

== ENCOUNTER 2024-05-09 12:03 | Emergency (ER) | payer BC, OTHER ==
[~2024-05-09] VITALS: Ht 167.6 cm; Wt 158.8 kg
[~2024-05-09 12:03] MED LIST changes: +CELEBREX200 MG PO; +CYCLOBENZAPRINE10 MG PO
[2024-05-09 12:12] VITALS: TEMP 98.6
[2024-05-09 13:03] VITALS: PULSE 60; RESP 16
[2024-05-09 13:19] VITALS: BP 130/68; PULSE 60; RESP 16; TEMP 98.6; O2SAT 99
== END 2024-05-09 13:10 | disposition home or self-care (01) ==
LOC: ER 12:18
DX: I83.892 Varicose veins of left lower extremity with other complications (principal); I10 Essential (primary) hypertension; J44.9 Chronic obstructive pulmonary disease, unspecified; E78.5 Hyperlipidemia, unspecified; M19.09 Primary osteoarthritis, other specified site; Z86.73 Personal history of transient ischemic attack (TIA), and cerebral infarction without residual deficits
CPT/HCPCS: 99283

== ENCOUNTER 2024-08-12 10:36 | Emergency (ER) | payer BC ==
[~2024-08-12] VITALS: Ht 167.6 cm; Wt 131.5 kg
[2024-08-12 10:58] VITALS: TEMP 99.3
[2024-08-12] MEDS ORDERED: KETOROLAC TROMETHAMINE 30 MG/ML VIAL IV STA (11:17)
[2024-08-12 11:20] LABS: BASOPHILS % 0.2 % (0.0-1.0); EOSINOPHILS # (AUTO) 0.1 (0.0-0.4); EOSINOPHILS % 1.4 % (0.0-6.0); HEMOGLOBIN 13.6 g/dL (12.0-16.0); LYMPHOCYTES # (AUTO) 0.8 (1.0-3.2); LYMPHOCYTES % 9.9 % (18.0-39.1); MEAN CORPUSCULAR HEMOGLOBIN 31.8 pg (28-32); MEAN CORPUSCULAR HGB CONC 32.4 g/dL (31-35); MEAN CORPUSCULAR VOLUME 98.1 fL (81-99); MONOCYTES # (AUTO) 0.4 (0.2-0.8); MONOCYTES % 5.1 % (4.4-11.3); NEUTROPHILS # (AUTO) 6.9 (2.1-6.9); NEUTROPHILS % 82.7 % (38.7-80.0); PLATELET COUNT 177 x10e3/uL (140-360); RED BLOOD COUNT 4.28 x10e6/uL (3.6-5.1); RED CELL DISTRIBUTION WIDTH 13.6 % (11.7-14.4); WHITE BLOOD COUNT 8.31 x10e3/uL (4.8-10.8)
[2024-08-12] MEDS: SODIUM CHLORIDE 0.9% 500ML 500 ML IV ONE (11:25)
[2024-08-12] MEDS: NITROFURANTOIN MACROCRYSTALS 100 MG CAP PO ONE (11:26)
[2024-08-12] MEDS: METHYLPREDNISOLONE SOD SUCC 125 MG/2ML VIAL IV ONE (11:26)
[2024-08-12] MEDS: KETOROLAC TROMETHAMINE 30 MG/ML VIAL IV STA (11:26)
[2024-08-12] MEDS: ONDANSETRON HCL INJ 2MG/ML 2ML 2 MG/ML VIAL IV STA (11:26)
[2024-08-12 11:31] LABS: INFLUENZA A AG POSITIVE (NEGATIVE)
[2024-08-12 11:32] LABS: CORONAVIRUS COVID-19 AG NEGATIVE (NEGATIVE); INFLUENZA B AG NEGATIVE (NEGATIVE)
[2024-08-12] MEDS: ALBUTEROL/IPRATROPIUM 3 ML NEB NEB ONE (11:46)
[2024-08-12 11:47] VITALS: PULSE 101; RESP 24; O2SAT 98
[2024-08-12 13:03] LABS: ALBUMIN 3.5 g/dL (3.5-5.0); ALBUMIN/GLOBULIN RATIO 1.1 (0.8-2.0); ANION GAP 16.4 mmol/L (8-16); BILIRUBIN,TOTAL 0.5 mg/dL (0.2-1.2); CALCIUM 9.5 mg/dL (8.4-10.2); CREATININE, SERUM 1.1 mg/dL (0.57-1.11); POTASSIUM 4.4 mmol/L (3.5-5.1); TOTAL PROTEIN 6.8 g/dL (6.5-8.1)
[2024-08-12 13:26] VITALS: PULSE 76; RESP 20; O2SAT 95
[2024-08-12] MEDS ORDERED: ONDANSETRON ODT4 MG PO (13:32)
[2024-08-12] MEDS ORDERED: TAMIFLU75 MG PO (13:32)
== END 2024-08-12 13:46 | disposition home or self-care (01) ==
LOC: ER 11:05
DX: R06.02 Shortness of breath (principal); J10.1 Influenza due to other identified influenza virus with other respiratory manifestations; N39.0 Urinary tract infection, site not specified; I10 Essential (primary) hypertension; J44.9 Chronic obstructive pulmonary disease, unspecified; E78.5 Hyperlipidemia, unspecified; Z86.73 Personal history of transient ischemic attack (TIA), and cerebral infarction without residual deficits
CPT/HCPCS: 36415; 71046; 80053; 85025; 87428; 94640; 94799; 99284; J1885; J2405; J2919; J7040